=== PATIENT | male | born 1965 | race African-American/Black ===

== ENCOUNTER 2019-01-07 18:32 | Inpatient (IN) | payer OTHER ==
[~2019-01-07] VITALS: Ht 188 cm; Wt 158.8 kg
[2019-01-07 18:37] VITALS: BP_SYST 161
[2019-01-07] MEDS ORDERED: KETOROLAC TROMETHAMINE 30 MG VIAL IVP ONE (19:00)
[2019-01-07] MEDS ORDERED: NACL 0.9% 1,000 ML IV ONE ×2 (19:00→20:00)
[2019-01-07] MEDS ORDERED: ASPIRIN 81 MG TAB.CHEW PO ONE (19:00)
[2019-01-07 19:15] LABS: BASOPHILS % (AUTO) 0.6 % (0.0-2.0); EOSINOPHILS # (AUTO) 0.3 K/uL (0.0-0.4); EOSINOPHILS % (AUTO) 3.7 % (0.0-4.0); HEMATOCRIT 41.7 % (36-54); HEMOGLOBIN 13.9 g/dL (14.0-18.0); LYMPHOCYTES # (AUTO) 1.9 K/uL (1.0-5.5); LYMPHOCYTES % (AUTO) 25.1 % (20.5-51.5); MEAN CORPUSCULAR HEMOGLOBIN 31 pg (27-31); MEAN CORPUSCULAR HGB CONC 33 % (32-36); MEAN CORPUSCULAR VOLUME 94 fL (79.0-98.0); MONOCYTES # (AUTO) 0.9 K/uL (0.0-1.0); MONOCYTES % (AUTO) 11.2 % (1.7-9.3); NEUTROPHILS # (AUTO) 4.6 K/uL (1.8-7.7); NEUTROPHILS % (AUTO) 59.4 % (40.0-70.0); PLATELET COUNT (AUTO) 295 K/uL (130-430); RED BLOOD CELL COUNT(AUTO) 4.43 MIL/uL (4.2-6.2); RED CELL DISTRIBUTION WIDTH 13.9 % (9.0-15.0); WHITE BLOOD COUNT (AUTO) 7.7 K/uL (4.8-10.8)
[2019-01-07 19:25] LABS: ANION GAP 9 (5-15); CALCIUM 9.7 mg/dL (8.4-11.0); CHLORIDE 104 mmol/L (98-107); CREATININE 1.08 mg/dL (0.55-1.30); GLUCOSE 91 mg/dL (70-99); POTASSIUM 3.4 mmol/L (3.5-5.1); SODIUM SERUM 143 mmol/L (136-145); UREA NITROGEN, BLOOD 11 mg/dL (8-21)
[2019-01-07 19:26] LABS: GFR AFRICAN AMERICAN 92 mL/min (>90)
[2019-01-07 19:37] LABS: ALANINE AMINOTRANSFERASE 42 U/L (12-78); ALBUMIN 3.6 g/dL (3.4-4.8); ASPARTATE AMINOTRANSFERASE 21 U/L (10-37); TOTAL BILIRUBIN 0.4 mg/dL (0.0-1.0)
[2019-01-07] MEDS ORDERED: IOHEXOL 350 mgI/mL, 150 ML INFUS..BTL IV ONE (20:08)
[2019-01-08 00:26] VITALS: BP_SYST 135
[2019-01-08] MEDS ORDERED: NITROGLYCERIN 0.4 MG TAB.SUBL SL PRN (05:30)
[2019-01-08] MEDS ORDERED: ACETAMINOPHEN 325 MG TABLET PO PRN (05:30)
[2019-01-08] MEDS ORDERED: D5W 1,000 ML IV PRN (06:13)
[2019-01-08] MEDS ORDERED: GLUCOSE 15 GM GEL (in 37.5 GM TUBE) PO PRN (06:15)
[2019-01-08] MEDS ORDERED: DEXTROSE 50% JECT 50 ML DISP.SYRIN IVP PRN (06:15)
[2019-01-08] MEDS ORDERED: INSULIN REGULAR, HUMAN 100 UNITS/ML, 10 ML VIAL (humuLIN R) SUBCUT PRN (06:15)
[2019-01-08 07:51] LABS: BASOPHILS # (AUTO) 0.1 K/uL (0.0-0.2); EOSINOPHILS # (AUTO) 0.3 K/uL (0.0-0.4); EOSINOPHILS % (AUTO) 4.3 % (0.0-4.0); HEMATOCRIT 39.7 % (36-54); HEMOGLOBIN 13.3 g/dL (14.0-18.0); LYMPHOCYTES # (AUTO) 1.5 K/uL (1.0-5.5); LYMPHOCYTES % (AUTO) 24.4 % (20.5-51.5); MEAN CORPUSCULAR HEMOGLOBIN 32 pg (27-31); MEAN CORPUSCULAR HGB CONC 34 % (32-36); MEAN CORPUSCULAR VOLUME 94 fL (79.0-98.0); MONOCYTES # (AUTO) 0.8 K/uL (0.0-1.0); MONOCYTES % (AUTO) 12.9 % (1.7-9.3); NEUTROPHILS # (AUTO) 3.6 K/uL (1.8-7.7); NEUTROPHILS % (AUTO) 57.4 % (40.0-70.0); PLATELET COUNT (AUTO) 268 K/uL (130-430); RED BLOOD CELL COUNT(AUTO) 4.23 MIL/uL (4.2-6.2); RED CELL DISTRIBUTION WIDTH 14.4 % (9.0-15.0); WHITE BLOOD COUNT (AUTO) 6.2 K/uL (4.8-10.8)
[2019-01-08 08:12] LABS: ALANINE AMINOTRANSFERASE 38 U/L (12-78); ALBUMIN 3.2 g/dL (3.4-4.8); ASPARTATE AMINOTRANSFERASE 22 U/L (10-37); CHLORIDE 105 mmol/L (98-107); GLUCOSE 92 mg/dL (70-99); POTASSIUM 3.7 mmol/L (3.5-5.1); SODIUM SERUM 144 mmol/L (136-145); TOTAL BILIRUBIN 0.5 mg/dL (0.0-1.0); UREA NITROGEN, BLOOD 10 mg/dL (8-21)
[2019-01-08 08:25] LABS: ANION GAP 9 (5-15)
[2019-01-08 08:28] LABS: GFR AFRICAN AMERICAN 90 mL/min (>90)
[2019-01-08] MEDS ORDERED: ASPIRIN 81 MG TAB.CHEW PO SCH (09:00)
[2019-01-08 11:09] VITALS: BP_SYST 115
[2019-01-08 11:24] VITALS: BP_SYST 131
== END 2019-01-08 11:50 | disposition home or self-care (01) | DRG 206 ==
LOC: SED 18:32 → STU 23:40
PROVIDERS: ADMIT Internal Medicine Hospice and Palliative Medicine; ATTEND Internal Medicine Hospice and Palliative Medicine
DX: M94.0 Chondrocostal junction syndrome [Tietze] (principal); Z68.41 Body mass index [BMI] 40.0-44.9, adult; E03.9 Hypothyroidism, unspecified; E11.9 Type 2 diabetes mellitus without complications; T14.8XXA Other injury of unspecified body region, initial encounter; E66.01 Morbid (severe) obesity due to excess calories; E78.00 Pure hypercholesterolemia, unspecified; E78.5 Hyperlipidemia, unspecified; I10 Essential (primary) hypertension; G89.29 Other chronic pain; X58.XXXA Exposure to other specified factors, initial encounter; Y93.89 Activity, other specified; Y92.89 Other specified places as the place of occurrence of the external cause; Y99.8 Other external cause status; Z79.4 Long term (current) use of insulin
CPT/HCPCS: 36415; 71045; 71275; 80053; 82962; 84484; 85025; 85379; 93005; 96361; 96374; 99285; G0378; J1885; J7030; Q9967

== ENCOUNTER 2019-04-03 10:48 | Emergency (ER) | payer OTHER ==
[~2019-04-03] VITALS: Ht 162.6 cm; Wt 73.5 kg
[2019-04-03 10:56] VITALS: BP_SYST 154; BP_SYST 158
--- NOTE | 2019-04-03 11:00 | NUR ---
Patient to ER bed 02 to gown for evaluation. Side rails up.
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
--- NOTE | 2019-04-03 11:15 | NUR ---
ER at bedside examining patient.
--- NOTE | 2019-04-03 12:45 | NUR ---
pt returned from radiology.
[2019-04-03 14:13] VITALS: BP_SYST 144
--- NOTE | 2019-04-03 14:13 | NUR ---
Patient given written and verbal discharge instructions and verbalizes understanding. ER MD discussed with patient the results and treatment provided. Patient in stable condition. ID arm band removed. IV catheter removed intact and dressing applied, no active bleeding. Rx of Motrin and Robaxin given. Patient educated on pain management and to follow up with PMD. Pain Scale 4/10. Opportunity for questions provided and answered. Medication side effect fact sheet provided.
== END 2019-04-03 14:13 | disposition home or self-care (01) ==
LOC: SED 10:48
DX: S16.1XXA Strain of muscle, fascia and tendon at neck level, initial encounter (principal); R07.89 Other chest pain; E11.9 Type 2 diabetes mellitus without complications; I10 Essential (primary) hypertension; E78.00 Pure hypercholesterolemia, unspecified; V49.40XA Driver injured in collision with unspecified motor vehicles in traffic accident, initial encounter; Y93.89 Activity, other specified; Y92.89 Other specified places as the place of occurrence of the external cause; Y99.8 Other external cause status
CPT/HCPCS: 71046-TC; 72125-TC; 93005; 99284

== ENCOUNTER 2022-05-29 01:21 | Emergency (ER) | payer OTHER ==
[~2022-05-29] VITALS: Ht 188 cm; Wt 147.4 kg
[2022-05-29 01:41] VITALS: BP_SYST 124
[2022-05-29] MEDS ORDERED: GUAI-723 PO (02:13)
[2022-05-29] MEDS ORDERED: BENZ100C92 PO (02:13)
[2022-05-29 03:09] LABS: BILIRUBIN,URINE NEGATIVE (NEGATIVE); BLOOD, URINE NEGATIVE (NEGATIVE); CLARITY/URINE CLEAR (CLEAR); COLOR,URINE YELLOW (YELLOW); GLUCOSE,URINE NEGATIVE (NEGATIVE); KETONES,URINE NEGATIVE (NEGATIVE); LEUKOCYTE ESTERASE ,URINE NEGATIVE (NEGATIVE); NITRITE, URINE NEGATIVE (NEGATIVE); PROTEIN URINE NEGATIVE (NEGATIVE); UROBILINOGEN,URINE 0.2 (0.2-1.0)
[2022-05-29 03:50] VITALS: BP_SYST 128
== END 2022-05-29 03:50 | disposition home or self-care (01) ==
LOC: SED 01:21
DX: R39.11 Hesitancy of micturition (principal); R30.0 Dysuria; J20.9 Acute bronchitis, unspecified; R05.9 Cough, unspecified; R09.81 Nasal congestion; E11.9 Type 2 diabetes mellitus without complications; I10 Essential (primary) hypertension; Z79.899 Other long term (current) drug therapy
CPT/HCPCS: 81003; 99282

== ENCOUNTER 2023-01-20 21:45 | Emergency (ER) | payer OTHER ==
[~2023-01-20] VITALS: Ht 188 cm; Wt 158.8 kg
[~2023-01-20 21:45] MED LIST: BENZ100C92 PO; GUAI-723 PO
[2023-01-20 21:55] VITALS: BP_SYST 111; PULSE 19; RESP 19; TEMP 97.9; O2SAT 97
== END 2023-01-20 22:57 | disposition left against medical advice (07) ==
LOC: SED 21:45
DX: R22.41 Localized swelling, mass and lump, right lower limb (principal); Z53.21 Procedure and treatment not carried out due to patient leaving prior to being seen by health care provider

== ENCOUNTER 2023-06-15 21:00 | Emergency (ER) | payer OTHER ==
[~2023-06-15] VITALS: Ht 188 cm; Wt 160.1 kg
[2023-06-15 21:00] VITALS: BP_SYST 134; PULSE 105; RESP 18; TEMP 97; O2SAT 98
[2023-06-15] MEDS: EPINEPHRINE HCL/PF 1 MG/ML AMP IM ONE (21:28)
[2023-06-15] MEDS: predniSONE 20 MG TABLET PO ONE (21:28)
[2023-06-15] MEDS: FAMOTIDINE 20 MG TABLET PO ONE (21:29)
[2023-06-15] MEDS ORDERED: EPIN0.3P3 IM (21:52)
[2023-06-15] MEDS ORDERED: PRED20TA PO (21:52)
[2023-06-15 22:23] VITALS: BP_SYST 121; PULSE 95; RESP 18; TEMP 97; O2SAT 98
== END 2023-06-15 22:23 | disposition home or self-care (01) ==
LOC: SED 21:00
DX: T78.3XXA Angioneurotic edema, initial encounter (principal); E11.9 Type 2 diabetes mellitus without complications; I10 Essential (primary) hypertension; Z79.899 Other long term (current) drug therapy; Y99.8 Other external cause status
CPT/HCPCS: 99283; 96372; J7512; J0171

== ENCOUNTER 2023-07-01 17:47 | Emergency (ER) | payer OTHER ==
[~2023-07-01] VITALS: Ht 188 cm; Wt 163.3 kg
[~2023-07-01 17:47] MED LIST changes: +EPIN0.3P3 IM; +PRED20TA PO
[2023-07-01 17:55] VITALS: BP_SYST 140; PULSE 109; RESP 18; TEMP 98.2; O2SAT 96
[2023-07-01] MEDS: LORazepam 2 MG/ML VIAL IM ONE (21:30)
[2023-07-01] MEDS: methylPREDNISolone SOD SUCC/PF 62.5 MG/ML VIAL IM ONE (21:30)
[2023-07-01] MEDS ORDERED: PRED20TA PO (21:39)
[2023-07-01] MEDS ORDERED: LORA2TAB95 PO (21:39)
[2023-07-01 21:46] LABS: BASOPHILS % (AUTO) 0.6 % (0.0-2.0); EOSINOPHILS # (AUTO) 0.3 K/uL (0.0-0.4); EOSINOPHILS % (AUTO) 3.7 % (0.0-4.0); HEMATOCRIT 36.1 % (36-54); LYMPHOCYTES # (AUTO) 0.8 K/uL (1.0-5.5); LYMPHOCYTES % (AUTO) 10.3 % (20.5-51.5); MEAN CORPUSCULAR HEMOGLOBIN 31 pg (27-31); MEAN CORPUSCULAR HGB CONC 33 % (32-36); MEAN CORPUSCULAR VOLUME 92 fL (79.0-98.0); MONOCYTES # (AUTO) 0.8 K/uL (0.0-1.0); NEUTROPHILS # (AUTO) 6.2 K/uL (1.8-7.7); NEUTROPHILS % (AUTO) 75.4 % (40.0-70.0); PLATELET COUNT (AUTO) 297 K/uL (130-430); RED BLOOD CELL COUNT(AUTO) 3.92 MIL/uL (4.2-6.2); RED CELL DISTRIBUTION WIDTH 14.3 % (9.0-15.0); WHITE BLOOD COUNT (AUTO) 8.2 K/uL (4.8-10.8)
[2023-07-01 22:25] LABS: ANION GAP 8 (5-15); CALCIUM 9.3 mg/dL (8.4-11.0); CARBON DIOXIDE 27 mmol/L (23-29); CHLORIDE 105 mmol/L (98-107); CREATININE 1.09 mg/dL (0.55-1.30); GFR AFRICAN AMERICAN 89 mL/min (>90); GFR NON AFRICAN-AMERICAN 74 mL/min (>90); GLUCOSE 101 mg/dL (74-106); POTASSIUM 4.2 mmol/L (3.5-5.1); SODIUM SERUM 140 mmol/L (136-145); UREA NITROGEN, BLOOD 9 mg/dL (8-21)
[2023-07-01 23:04] VITALS: BP_SYST 132; PULSE 69; RESP 17; TEMP 98.1; O2SAT 98
== END 2023-07-01 23:04 | disposition home or self-care (01) ==
LOC: SED 17:47
DX: R21 Rash and other nonspecific skin eruption (principal); T46.5X5A Adverse effect of other antihypertensive drugs, initial encounter; F41.9 Anxiety disorder, unspecified; E11.9 Type 2 diabetes mellitus without complications; I10 Essential (primary) hypertension; E78.00 Pure hypercholesterolemia, unspecified; Y92.89 Other specified places as the place of occurrence of the external cause; Z79.899 Other long term (current) drug therapy
CPT/HCPCS: 99283; 71045; 80048; 83880; 85025; 84484; 36415; 93005; 96372; J2060; J2930